=== PATIENT | male | born 2000 | race Two or more races ===

== ENCOUNTER 2024-04-03 18:20 | Inpatient (IN) | payer SELFPAY ==
[2024-04-03 18:40] VITALS: BMI 24.5
[2024-04-03 20:36] LABS: BASO % 0.3 % (0-2.0); EOS % 2.4 % (0-4.5); HEMATOCRIT 47.7 % (35.4-49); HEMOGLOBIN 16.5 GM/dL (11.7-16.9); LYMPH % 41.9 % (8-40); MCH 30.2 pg (25.7-33.7); MCHC 34.6 g/dl (32.0-35.9); MEAN CELL VOLUME 87.4 fl (80-96); MEAN PLT VOLUME 8.7 fl (7.5-11.1); MONO % 11.7 % (3.8-10.2); NEUT % 43.7 % (42.8-82.8); PLATELET COUNT 272 10^3/uL (134-434); RBC 5.45 M/mm3 (4.00-5.60); WHITE BLOOD COUNT 4.3 K/mm3 (4.0-10.0)
[2024-04-03] MEDS: SODIUM CHLORIDE 0.9% 500 ML INFUS.BAG IV ONE (20:54)
[2024-04-03 21:06] LABS: ALBUMIN 4.3 g/dl (3.4-5.0); BLOOD UREA NITROGEN 12.1 mg/dL (7-18); CALCIUM 9.6 mg/dL (8.5-10.1)
[2024-04-03 21:10] LABS: CREATININE 1.1 mg/dL (0.55-1.3)
[2024-04-03 21:11] LABS: BILIRUBIN,TOTAL 0.9 mg/dL (0.2-1); TOT PROT 8.5 g/dl (6.4-8.2)
[2024-04-04] MEDS ORDERED: SODIUM CHLORIDE 1,000 ML IV SCH (01:45)
[2024-04-04] MEDS: SODIUM CHLORIDE 1,000 ML IV ONE (01:54)
[2024-04-04 03:46] LABS: URINE APPEARANCE CLEAR; URINE BILIRUBIN NEGATIVE (NEGATIVE); URINE COLOR YELLOW; URINE GLUCOSE (UA) NEGATIVE (NEGATIVE); URINE KETONE TRACE (NEGATIVE); URINE LEUK ESTERASE NEGATIVE (NEGATIVE); URINE NITRITE NEGATIVE (NEGATIVE); URINE PROTEIN NEGATIVE (NEGATIVE); URINE UROBILINOGEN 0.2 mg/dL (0.2-1.0)
[2024-04-04 04:06] LABS: METHADONE, UR NEGATIVE (NEGATIVE); OPIATES, URI NEGATIVE (NEGATIVE); URINE BARBITURATES NEGATIVE (NEGATIVE); URINE BENZODIAZEPINES NEGATIVE (NEGATIVE)
[2024-04-04 04:07] LABS: PHENCYCLIDINE,URINE NEGATIVE (NEGATIVE); URINE AMPHETAMINES NEGATIVE (NEGATIVE)
[2024-04-04 06:23] LABS: COCAINE, UR POSITIVE (NEGATIVE)
[2024-04-04] MEDS: LACTATED RINGERS SOLUTION 1,000 ML/1,000 ML INFUS.BAG IV SCH (09:20)
[2024-04-04] MEDS: QUEtiapine FUMARATE 25 MG TABLET PO PRN (18:37)
[2024-04-05] MEDS: THIAMINE HCL 200 MG/2 ML VIAL IVPB SCH (10:50)
[2024-04-05] MEDS: FOLIC ACID 1 MG TABLET (FP) PO SCH (10:50)
[2024-04-05 11:34] LABS: BASO % 0.7 % (0-2.0); EOS % 4.5 % (0-4.5); HEMATOCRIT 41.7 % (35.4-49); HEMOGLOBIN 14.6 GM/dL (11.7-16.9); LYMPH % 39.9 % (8-40); MCH 30.5 pg (25.7-33.7); MCHC 35.1 g/dl (32.0-35.9); MEAN PLT VOLUME 8.6 fl (7.5-11.1); MONO % 13.7 % (3.8-10.2); NEUT % 41.2 % (42.8-82.8); PLATELET COUNT 209 10^3/uL (134-434); RDW 13.6 % (11.9-15.9); WHITE BLOOD COUNT 3.1 K/mm3 (4.0-10.0)
[2024-04-05 11:59] LABS: POTASSIUM 4.1 mmol/L (3.5-5.1)
[2024-04-05 12:01] LABS: CALCIUM 8.8 mg/dL (8.5-10.1)
[2024-04-05 12:02] LABS: ALBUMIN 3.7 g/dl (3.4-5.0); BLOOD UREA NITROGEN 11.1 mg/dL (7-18); MAGNESIUM 2.2 mg/dL (1.8-2.4)
[2024-04-05 12:05] LABS: CREATININE 1.1 mg/dL (0.55-1.3); PHOSPHOROUS 3.4 mg/dL (2.5-4.9)
[2024-04-05] MEDS ORDERED: OLANZapine 5 MG TABLET PO PRN (18:29)
[2024-04-05] MEDS ORDERED: QUEtiapine FUMARATE 25 MG TABLET PO SCH (22:00)
[2024-04-06 11:09] LABS: POTASSIUM 3.9 mmol/L (3.5-5.1)
[2024-04-06 11:13] LABS: ALBUMIN 3.7 g/dl (3.4-5.0); BLOOD UREA NITROGEN 14.1 mg/dL (7-18); CALCIUM 9.3 mg/dL (8.5-10.1); MAGNESIUM 2.4 mg/dL (1.8-2.4)
[2024-04-06 11:16] LABS: CREATININE 1.1 mg/dL (0.55-1.3); PHOSPHOROUS 3.3 mg/dL (2.5-4.9)
[2024-04-06 11:17] LABS: BILIRUBIN,TOTAL 0.8 mg/dL (0.2-1)
[2024-04-06 11:18] LABS: TOT PROT 7.1 g/dl (6.4-8.2)
[2024-04-06] MEDS ORDERED: OLANZapine 10 MG TABLET PO SCH (19:00)
[2024-04-06] MEDS: OLANZapine 10 MG TABLET PO SCH (21:26)
[2024-04-07] MEDS: ACETAMINOPHEN 1000 MG/100 ML BAG IVPB ONE (20:03)
[2024-04-07] MEDS: MELATONIN 5 MG TABLETS PO PRN (22:06)
[2024-04-08 08:07] LABS: POTASSIUM 4.2 mmol/L (3.5-5.1)
[2024-04-08 08:08] LABS: BASO % 0.7 % (0-2.0); EOS % 7.8 % (0-4.5); HEMATOCRIT 42.2 % (35.4-49); HEMOGLOBIN 14.7 GM/dL (11.7-16.9); LYMPH % 42.3 % (8-40); MCH 30.3 pg (25.7-33.7); MCHC 34.9 g/dl (32.0-35.9); MEAN CELL VOLUME 86.7 fl (80-96); MEAN PLT VOLUME 8.6 fl (7.5-11.1); MONO % 11.6 % (3.8-10.2); NEUT % 37.6 % (42.8-82.8); PLATELET COUNT 219 10^3/uL (134-434); RBC 4.87 M/mm3 (4.00-5.60); RDW 13.5 % (11.9-15.9); WHITE BLOOD COUNT 3.3 K/mm3 (4.0-10.0)
[2024-04-08 08:13] LABS: ALBUMIN 3.6 g/dl (3.4-5.0); CALCIUM 9.2 mg/dL (8.5-10.1)
[2024-04-08 08:14] LABS: BLOOD UREA NITROGEN 14.4 mg/dL (7-18)
[2024-04-08 08:16] LABS: CREATININE 1.2 mg/dL (0.55-1.3)
[2024-04-08 08:18] LABS: BILIRUBIN,TOTAL 0.6 mg/dL (0.2-1); TOT PROT 6.7 g/dl (6.4-8.2)
[2024-04-09 11:06] LABS: HEMATOCRIT 42.3 % (35.4-49); HEMOGLOBIN 14.7 GM/dL (11.7-16.9); MCH 30.2 pg (25.7-33.7); MCHC 34.8 g/dl (32.0-35.9); MEAN CELL VOLUME 86.9 fl (80-96); MEAN PLT VOLUME 8.8 fl (7.5-11.1); PLATELET COUNT 216 10^3/uL (134-434); RBC 4.87 M/mm3 (4.00-5.60); RDW 13.3 % (11.9-15.9); WHITE BLOOD COUNT 3.3 K/mm3 (4.0-10.0)
[2024-04-09 11:20] LABS: POTASSIUM 4.1 mmol/L (3.5-5.1)
[2024-04-09 11:25] LABS: ALBUMIN 3.6 g/dl (3.4-5.0); CALCIUM 9.4 mg/dL (8.5-10.1)
[2024-04-09 11:26] LABS: BLOOD UREA NITROGEN 15.6 mg/dL (7-18)
[2024-04-09 11:28] LABS: CREATININE 1.2 mg/dL (0.55-1.3)
[2024-04-09 11:29] LABS: BILIRUBIN,TOTAL 0.7 mg/dL (0.2-1)
[2024-04-09 11:30] LABS: TOT PROT 6.8 g/dl (6.4-8.2)
[2024-04-10] MEDS: IBUPROFEN 600 MG TABLET (FP) PO ONE (17:45)
[2024-04-10] MEDS: THIAMINE 100 MG TABLET PO SCH (18:24)
[2024-04-11 12:03] VITALS: RESP 18
[2024-04-11 13:22] VITALS: BP 117/60; PULSE 82; TEMP 99.5
== END 2024-04-11 19:40 | disposition home or self-care (01) | DRG 774 ==
LOC: JER 18:20 → JERBED 04-04 04:25 → J6S 04-04 23:04 → OBSVTOIN 04-05 10:15
PROVIDERS: ADMIT Internal Medicine; ATTEND Internal Medicine
DX: F14.151 Cocaine abuse with cocaine-induced psychotic disorder with hallucinations (principal); F10.10 Alcohol abuse, uncomplicated; F12.10 Cannabis abuse, uncomplicated; D53.9 Nutritional anemia, unspecified; F17.210 Nicotine dependence, cigarettes, uncomplicated; R45.1 Restlessness and agitation
CPT/HCPCS: 36415; 70450-TC; 70553-TC; 80053; 80307; 81003; 82607; 82746; 83735; 84100; 84443; 85025; 85027; 85651; 86140; 86780; 87086; 93005; 93010; 99285-25; G0378; J0131